=== PATIENT | female | born 2005 | race Caucasian/White ===

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

== ENCOUNTER 2024-09-30 17:24 | Observation (INO) ==
[2024-09-30] MEDS: ONDANSETRON INJ 2 MG/ML 2 ML VIAL IV STA (17:47)
--- NOTE | 2024-09-30 18:29 | Emergency Department Note ---
Impression & Plan Paresthesias, Adverse effects of medication, Trouble walking, Transaminitis ED Provider Note NAME: DUNG LÓPEZ AGE: 19 SEX: F : 2005 ARRIVES VIA: Walk-In INFORMANT: Patient ED PROVIDER(S): Donald Rausch DO CHIEF COMPLAINT: Trouble walking, numbness HPI: Patient is a 19-year-old female who presents to the ER following starting take Flagyl for the past 2 days. Following this she became sick to her stomach and did vomit. She notes paresthesias in bilateral hands on the base of the feet. She notes she feels very rigid and has trouble walking. Denies any headache. Admits to some neck pain which she said present for the past 3 weeks which is unchanged. No chest pain or shortness of breath. No dysuria, urgency or frequency. No other exacerbating or remitting factors. She notes the difficulty walking and numbness has been present for the past 2 days since this started. ADDITIONAL HISTORY OBTAINED: Per HPI Chronic Medical/Social Conditions Affecting Care: Per HPI PAST MEDICAL HISTORY:See Below PAST SURGICAL HISTORY:See Below FAMILY HISTORY:See Below SOCIAL HISTORY:See Below HOME MEDICATIONS:See Below ALLERGIES:See Below VITALS:See Below PHYSICAL EXAMINATION: GENERAL: Sitting up in bed, alert, well appearing, well nourished, no distress, non-toxic EYE EXAM: normal conjunctiva. PERRL and EOM's grossly intact. OROPHARYNX: no exudate, no erythema, lips, buccal mucosa, and tongue normal and mucous membranes are moist NECK: supple, no nuchal rigidity, no adenopathy, non-tender LUNGS: Clear to auscultation. Normal chest wall mechanics HEART: no murmurs, S1 normal and S2 normal ABDOMEN: abdomen soft, non-tender, normo-active bowel sounds, no masses, no rebound or guarding. BACK: Back is symmetrical on inspection and there is no deformity, no midline tenderness, no CVA tenderness. SKIN: no rashes and no bruising UPPER EXTREMITIES: upper extremities are grossly normal. LOWER EXTREMITIES: No pitting edema. NEURO EXAM: Normal sensorium, cranial nerves II-XII intact, normal speech, no gross weakness of arms, rigidity in the lower extremities with no clonus. Walks with a wider base gait. No patellar or Achilles reflexes present although patient was having significant difficulty relaxing MEDICAL DECISION MAKING: Patient is a 19-year-old female who presents ER for the above-stated complaint. IV was established and blood work was obtained. Labs show no significant leukocytosis or anemia. BMP along with T. bili is unremarkable. LFTs with mild transaminitis. CRP was pending upon admission. Said was 11. Lipase was normal. CT angios of the head and neck were negative per radiology. Discussed with Susan Purcell from neurology at [facility] and she evaluated the patient. She recommended admission. Discussed with Dr. Gonzalez for further evaluation management treatment. At this time do not feel this consistent with GBS. No signs of meningitis or encephalitis. Consults/Care Managements Discussions: Per MDM Triage Nursing notes reviewed. Limited review of prior medical records performed Vital Signs: reviewed and remarkable for HTN and tachy Differential diagnosis: Differential Diagnosis includes but is not limited to ischemic Stroke, hemorrhagic stroke, bells palsy, mass, neoplasm, migraine headache, seizure, subarachnoid hemorrhage, TIA, and transient global amnesia. ER treatment provided: See below Diagnostics interpreted by me include EKG and cardiac monitoring as listed below: -Cardiac Monitoring: An order was placed for continuous cardiac monitoring. The monitor shows a rate of 100 with sinus rhythm. -ECG: none -Laboratory studies:Interpreted by me as stated above in MDM and shown below. Imaging studies: Xrays: As interpreted by me:none CTs show: CT angios of the head and neck were negative per radiology Procedures:none Critical Care: None Past Med/Surg History Problem List (Updated 09/30/24 @ 20:36 by Donald Rausch DO) Transaminitis (Acute) Trouble walking (Acute) Adverse effects of medication (Acute) Malaise and fatigue Fever (Acute) Back pain (Acute) Paresthesias (Acute) Cerebrospinal fluid protein elevation (Acute) Headache (Acute) Meningitis, viral (Acute) Patient denies medical problems Medical History Self-injurious behavior Suicidal ideation Headache Family History Grandmother (Maternal) Breast cancer Denies family history of Ovarian cancer Prostate cancer Myocardial infarction Colorectal cancer Social History Smoking Status: Former smoker Tobacco Type: E-cigarettes / Vaping Hx Alcohol Use: No Hx Substance Use: No Preferred Language: [place]ese Communication Ability: Effective Visual Impairment: No Limitations Hearing Ability: Normal Signals Intelligence Analyst Required: No Beliefs That Will Affect Care: None marital status: Single Current Living Situation: Other Current Living Situation Comment: friends current occupational status: employed Feels Safe at Home: Yes caffeine: Yes Dental Care, Regularly: Yes Physical Activity Frequency: 3-4 Times per Week Seatbelt Use: always Sunscreen Use: Yes Assistive Devices: None Allergies Allergies Allergy/AdvReac Type Severity Reaction Status Date / Time naproxen Allergy Vomiting Verified 08/23/24 13:41 Home Meds Home Medications Medication Instructions Recorded Confirmed levonorgestrel 21 mcg/24 hr (up to 1 device intrauterine DIRECTED 02/06/23 06/03/24 8 years) 52 mg intrauterine device (Mirena) triamcinolone acetonide 0.1 % 1 applic topical BID 06/03/24 06/03/24 topical cream Previous Rx's Medication Instructions Recorded amoxicillin 875 mg-potassium 1 tab PO BID #10 tabs 06/03/24 clavulanate 125 mg tablet ondansetron 4 mg disintegrating 4 mg PO Q8H PRN nausea and 06/03/24 tablet vomiting #15 tabs Results & Data (ED) Vital Signs Vital Signs - 24 hr 09/30/24 17:28 Temperature 36.7 C Temperature Source Temporal Artery Scan Pulse Rate 100 H Respiratory Rate 18 Respiratory Effort / Characteristics Non-Labored Respiratory Depth Normal Blood Pressure 154/99 H Blood Pressure Mean 117 Pulse Oximetry 100 Oxygen Delivery Method Room Air Sepsis Recent Fever Within 48 Hours No Sepsis New/Unexplained Change in Mental Status No Sepsis Action Taken by Nursing No Action Required Laboratory Data 09/30/24 19:21 09/30/24 19:21 Lab Results 09/30/24 Range/Units 19:21 WBC 7.10 (4.8-10.8) K/ul RBC 4.34 (4.20-5.40) M/uL Hgb 13.0 (12.0-16.0) g/dl Hct 37.9 (37.0-47.0) % MCV 87.3 (80.0-100.0) fL MCH 30.0 (25.0-34.0) pg MCHC 34.3 (32.0-36.0) g/dL RDW Std Deviation 37.4 (36.4-46.3) fL RDW Coeff of Ciara 11.7 (11.5-14.5) % Plt Count 206 (130-400) K/uL MPV 9.1 L (9.4-12.4) fL Immature Gran % (Auto) 0.3 % Neut % (Auto) 50.1 % Lymph % (Auto) 42.1 % Fisher % (Auto) 6.9 % Eos % (Auto) 0.0 % Baso % (Auto) 0.6 % Neut # (Auto) 3.56 (1.40-6.50) K/uL Lymph # (Auto) 2.99 (1.20-3.40) K/uL Fisher # (Auto) 0.49 (0.11-0.59) K/uL Eos # (Auto) 0.00 (0.00-0.50) K/uL Baso # (Auto) 0.04 (0.00-0.20) K/uL Immature Gran # (Auto) 0.02 (0.01-0.20) K/uL ESR 11 (0-20) mm/hr Sodium 135 L (136-145) mmol/L Potassium 3.9 (3.5-5.1) mmol/L Chloride 104 (98-107) mmol/L Carbon Dioxide 23 (21-32) mmol/L Anion Gap 8 (3-11) BUN 17 (6-23) mg/dl Creatinine 0.53 L (0.6-1.2) mg/dl Est Cr Clr Drug Dosing 158.5 ml/min eGFR 135.70 BUN/Creatinine Ratio 32.1 H (10-20) Glucose 87 (70-99(Fasting)) mg/dl Calcium 9.0 (8.6-10.3) mg/dl Magnesium 1.8 (1.7-2.4) mg/dl Total Bilirubin 0.4 (0.2-1.0) mg/dl AST 101 H (13-39) U/L ALT 213 H (7-52) U/L Alkaline Phosphatase 69 (34-104) U/L Total Protein 7.5 (6.0-8.3) gm/dl Albumin 4.0 (3.4-5.0) gm/dl Globulin 3.5 (2.5-4.0) gm/dl Albumin/Globulin Ratio 1.1 (0.9-2) Lipase 95 H (11-82) U/L Administered Medications Discontinued Medications Diphenhydramine HCl (Diphenhydramine 50 Mg/Ml Vial) 25 mg IV NOW STA Stop: 09/30/24 18:19 Last Admin: 09/30/24 18:49 Dose: 25 mg Documented By: HORTENCIA Ioversol (Optiray 320 125ml) 119 ml IV ONCE ONE Stop: 09/30/24 19:03 Last Admin: 09/30/24 19:02 Dose: 119 ml Documented By: MARICHUY Ondansetron HCl (Ondansetron Inj 2 Mg/Ml 2 Ml Vial) 4 mg IV NOW STA Stop: 09/30/24 17:41 Last Admin: 09/30/24 17:47 Dose: 4 mg Documented By: RAFAEL Imaging Data Radiologist's Impression: Head CTA 09/30/24 18:[address] without contrast CT angiogram of the neck CT angiogram of the brain with contrast Provided History: Headache Comparison: None Technique: HEAD CT: Using multidetector thin collimation helical acquisition technique, axial, coronal and sagittal CT images from the skull base to the vertex were obtained without intravenous contrast. HEAD and NECK CTA: During rapid bolus intravenous injection of nonionic contrast material, axial images were obtained using thin collimation multidetector helical technique from the base of the neck through the of vertex of the head. This CT angiogram data was reconstructed at thin intervals with mild overlap. 3D reconstructions were obtained. The axial source images, multiplanar reformations, 3D reconstructions in both maximum intensity projection display and volume rendered models were reviewed. Dose reduction techniques were achieved by using automatic exposure control and/or adjustment of mA and/or kV according to patient size and/or use of iterative reconstruction technique. Findings: Head CT: There is no intracranial hemorrhage, mass effect, or midline shift. Lyon/white matter differentiation in both cerebral hemispheres is preserved. Ventricles are proportionate to the cerebral sulci. Mild fluid in the left maxillary sinus. Head CTA demonstrates no aneurysm or stenosis of the major intracranial arteries. Neck CTA demonstrates no stenosis of the major cervical arteries. The origins of the great vessels from the aortic arch are patent. No mass is noted within the visualized portions of the cervical soft tissues or lung apices. Impression: 1. Head CTA demonstrates no aneurysm or stenosis of the major intracranial arteries, 2. Neck CTA demonstrates no stenosis of the major cervical arteries. 3. No intracranial hemorrhage on the noncontrast head CT. Electronically signed by Anthony Fuentes 09-30-2024 7:33 PM Neck CTA 09/30/24 18:[address] without contrast CT angiogram of the neck CT angiogram of the brain with contrast Provided History: Headache Comparison: None Technique: HEAD CT: Using multidetector thin collimation helical acquisition technique, axial, coronal and sagittal CT images from the skull base to the vertex were obtained without intravenous contrast. HEAD and NECK CTA: During rapid bolus intravenous injection of nonionic contrast material, axial images were obtained using thin collimation multidetector helical technique from the base of the neck through the of vertex of the head. This CT angiogram data was reconstructed at thin intervals with mild overlap. 3D reconstructions were obtained. The axial source images, multiplanar reformations, 3D reconstructions in both maximum intensity projection display and volume rendered models were reviewed. Dose reduction techniques were achieved by using automatic exposure control and/or adjustment of mA and/or kV according to patient size and/or use of iterative reconstruction technique. Findings: Head CT: There is no intracranial hemorrhage, mass effect, or midline shift. Lyon/white matter differentiation in both cerebral hemispheres is preserved. Ventricles are proportionate to the cerebral sulci. Mild fluid in the left maxillary sinus. Head CTA demonstrates no aneurysm or stenosis of the major intracranial arteries. Neck CTA demonstrates no stenosis of the major cervical arteries. The origins of the great vessels from the aortic arch are patent. No mass is noted within the visualized portions of the cervical soft tissues or lung apices. Impression: 1. Head CTA demonstrates no aneurysm or stenosis of the major intracranial arteries, 2. Neck CTA demonstrates no stenosis of the major cervical arteries. 3. No intracranial hemorrhage on the noncontrast head CT. Electronically signed by Anthony Fuentes 09-30-2024 7:33 PM Discharge Plan Visit Data Chief Complaint: Allergic Reaction Stated Complaint: ALLERGIC REACTION, TO MED, [place]INGL[place], NAUSEA ED Provider: Donald Rausch Discharge Problem: Paresthesias, Adverse effects of medication, Trouble walking, Transaminitis Condition: Fair Forms Stand Alone Forms: Modality Prescriptions Prescriptions: No Action Mirena 21 mcg/24 hours (8 yrs) 52 mg intrauterine device 1 device intrauterine DIRECTED triamcinolone acetonide 0.1 % cream 1 applic topical BID amoxicillin-pot clavulanate 875-125 mg tablet 1 tab PO BID Qty: 10 0RF ondansetron 4 mg tablet,disintegrating 4 mg PO Q8H PRN (Reason: nausea and vomiting) Qty: 15 0RF Referrals Referrals: Bora Mendoza MD [Primary Care Provider] - Discharge Problem: Adverse effects of medication Qualifiers: Encounter type: initial encounter Qualified Code(s): T50.905A - Adverse effect of unspecified drugs, medicaments and biological substances, initial encounter
[2024-09-30] MEDS: diphenhydrAMINE 50 MG/ML VIAL IV STA (18:49)
[2024-09-30] MEDS: OPTIRAY 320 125ml IV ONE (19:02)
[2024-09-30 19:32] LABS: Hematocrit (blood only) 37.9 % (37.0-47.0); Hemoglobin 13.0 g/dl (12.0-16.0); Immature Granulocytes # (auto) 0.02 K/uL (0.01-0.20); Immature Granulocytes % (auto) 0.3 %; Mean Corpuscular Hemoglobin 30.0 pg (25.0-34.0); Mean Corpuscular Volume 87.3 fL (80.0-100.0); Platelet Count 206 K/uL (130-400); RDW Standard Deviation 37.4 fL (36.4-46.3); Red Blood Count 4.34 M/uL (4.20-5.40); White Blood Count 7.10 K/ul (4.8-10.8)
--- NOTE | 2024-09-30 19:33 | CT Scan Report ---
Head CT without contrast CT angiogram of the neck CT angiogram of the brain with contrast Provided History: Headache Comparison: None Technique: HEAD CT: Using multidetector thin collimation helical acquisition technique, axial, coronal and sagittal CT images from the skull base to the vertex were obtained without intravenous contrast. HEAD and NECK CTA: During rapid bolus intravenous injection of nonionic contrast material, axial images were obtained using thin collimation multidetector helical technique from the base of the neck through the of vertex of the head. This CT angiogram data was reconstructed at thin intervals with mild overlap. 3D reconstructions were obtained. The axial source images, multiplanar reformations, 3D reconstructions in both maximum intensity projection display and volume rendered models were reviewed. Dose reduction techniques were achieved by using automatic exposure control and/or adjustment of mA and/or kV according to patient size and/or use of iterative reconstruction technique. Findings: Head CT: There is no intracranial hemorrhage, mass effect, or midline shift. Lyon/white matter differentiation in both cerebral hemispheres is preserved. Ventricles are proportionate to the cerebral sulci. Mild fluid in the left maxillary sinus. Head CTA demonstrates no aneurysm or stenosis of the major intracranial arteries. Neck CTA demonstrates no stenosis of the major cervical arteries. The origins of the great vessels from the aortic arch are patent. No mass is noted within the visualized portions of the cervical soft tissues or lung apices. Impression: 1. Head CTA demonstrates no aneurysm or stenosis of the major intracranial arteries, 2. Neck CTA demonstrates no stenosis of the major cervical arteries. 3. No intracranial hemorrhage on the noncontrast head CT. Electronically signed by Anthony Fuentes 09-30-2024 7:33 PM
--- NOTE | 2024-09-30 19:39 | Neurology Consultation ---
Date of Consultation September 30, 2024 Assessment & Plan (1) Adverse effects of medication: I suspect the patient's symptoms are due to adverse reaction to metronidazole. It is known to cause nausea and 10 to 12%, headache and 18%, dizziness and 4%, epigastric discomfort, asthenia, drowsiness, malaise, numbness. - Metronidazole will need to be listed as an allergy - Discontinue metronidazole - Would hold Benadryl as it did not provide benefit and somewhat worsen the patient's symptoms - Continue Zofran - Recommend IV fluids - Oral intake as tolerated - Recommend 24 hours observation - PT OT consult in the morning - No further brain or spine imaging needed unless patient symptoms do not resolve - I will check on the patient tomorrow Telehealth Consultation Telehealth Information Telehealth Information: I performed this visit using a real-time telehealth connection between my location and the patients location ([facility]). After connecting through interactive tele-video, patient was identified by name and date of and/or wristband check.Patient (or authorized healthcare outreach representative) was informed that this was a telemedicine visit and it was being conducted confidentially over secure lines. My office door was closed and no one else was present in the room with me.Patient (or authorized healthcare outreach representative) provided consent to proceed with the visit, expressed an understanding of privacy and security of the telemedicine visit, and gave permission to have a hospital outreach representative in the room in order to assist with the visit and to conduct portions of the visit, as needed. I informed the patient (or authorized healthcare outreach representative) that I reviewed their record and presented the opportunity for them to ask any questions regarding the visit today. The patient agreed to participate. History of Present Illness Reason for Consultation: Adverse effect of metronidazole Requesting Physician: Dr. Rausch History of Present Illness Flower Hernandez is a 19-year-old previously healthy female who presents to [facility] emergency department on 09/30/2024 with acute onset paresthesias, nausea, vomiting, gait unsteadiness following 2 doses of metronidazole she was recently prescribed for BV. A friend is present for the encounter and does not provide history. Flower reports that she was recently prescribed metronidazole. After 1 dose that she has paresthesias in the bilateral hands and feet. After the second dose she developed migraines, unsteadiness, abnormal proprioception, nausea, and vomiting. She called her primary care physician who recommended she take Benadryl and report to the emergency department. She reports the Benadryl did not help. She had 1 dose of Zofran in the emergency department which provided some relief. She tells me she has not been drinking much water or eating due to the nausea and vomiting. She had a prior allergic reaction to naproxen of vomiting, otherwise no known allergies. Allergies Allergy/AdvReac Type Severity Reaction Status Date / Time naproxen Allergy Vomiting Verified 08/23/24 13:41 Home Medications Medication Instructions Recorded Confirmed Type levonorgestrel 21 mcg/24 hr (up to 1 device intrauterine DIRECTED 02/06/23 06/03/24 History 8 years) 52 mg intrauterine device (Mirena) amoxicillin 875 mg-potassium 1 tab PO BID #10 tabs 06/03/24 Rx clavulanate 125 mg tablet ondansetron 4 mg disintegrating 4 mg PO Q8H PRN nausea and 06/03/24 Rx tablet vomiting #15 tabs triamcinolone acetonide 0.1 % 1 applic topical BID 06/03/24 06/03/24 History topical cream Patient History Medical History Self-injurious behavior Suicidal ideation Headache Family History Grandmother (Maternal) Breast cancer Denies family history of Ovarian cancer Prostate cancer Myocardial infarction Colorectal cancer Social History Smoking Status: Former smoker Tobacco Type: E-cigarettes / Vaping Hx Alcohol Use: No Hx Substance Use: No Preferred Language: Urdu Communication Ability: Effective Visual Impairment: No Limitations 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 Physical Exam Physical Exam: General Appearance: Alert HEENT: anicteric sclera, no scleral injection Lungs: respirations appear comfortable, no obvious increased work of breathing Extremities: No cyanosis or fingernail clubbing Skin: No rashes in exposed skin areas Objective Limited due to Televideo encounter Physical Exam: General Appearance: Alert Neurological Examination: Mental status: Alert and oriented. No dysarthria. Cranial Nerves: Extraocular movements intact with no nystagmus. Midline gaze. Face symmetric. Sensory: Normal sensory exam to light touch. Motor:Absent pronator drift, antigravity in all extremities. Cerebellar: [id number] intact. [id number] intact. Results & Data Vital Signs (Past 12 Hours) Vital Signs Temp Pulse Resp BP Pulse Ox O2 Del Method 09/30/24 17:28 36.7 C 100 H 18 154/99 H 100 Room Air Laboratory Results 09/30/24 19:21 WBC 7.10 RBC 4.34 Hgb 13.0 Hct 37.9 MCV 87.3 MCH 30.0 MCHC 34.3 RDW Std Deviation 37.4 RDW Coeff of Ciara 11.7 Plt Count 206 MPV 9.1 L Immature Gran % (Auto) 0.3 Neut % (Auto) 50.1 Lymph % (Auto) 42.1 Miller % (Auto) 6.9 Eos % (Auto) 0.0 Baso % (Auto) 0.6 Neut # (Auto) 3.56 Lymph # (Auto) 2.99 Miller # (Auto) 0.49 Eos # (Auto) 0.00 Baso # (Auto) 0.04 Immature Gran # (Auto) 0.02 Diagnostic Findings Head Neck CTA 09/30/24 18:[address] without contrast CT angiogram of the neck CT angiogram of the brain with contrast Provided History: Headache Findings: Head CT: There is no intracranial hemorrhage, mass effect, or midline shift. Lyon/white matter differentiation in both cerebral hemispheres is preserved. Ventricles are proportionate to the cerebral sulci. Mild fluid in the left maxillary sinus. Head CTA demonstrates no aneurysm or stenosis of the major intracranial arteries. Neck CTA demonstrates no stenosis of the major cervical arteries. The origins of the great vessels from the aortic arch are patent. No mass is noted within the visualized portions of the cervical soft tissues or lung apices. Impression: 1. Head CTA demonstrates no aneurysm or stenosis of the major intracranial arteries, 2. Neck CTA demonstrates no stenosis of the major cervical arteries. 3. No intracranial hemorrhage on the noncontrast head CT. Electronically signed by Anthony Fuentes 09-30-2024 7:33 PM
[2024-09-30 19:50] LABS: Alanine Aminotransferase 213.0 U/L (7-52); Albumin Globulin Ratio 1.1 (0.9-2); Alkaline Phosphatase 69.0 U/L (34-104); Anion Gap 8.0 (3-11); Bilirubin,Total 0.4 mg/dl (0.2-1.0); Blood Urea Nitrogen 17.0 mg/dl (6-23); Calcium 9.0 mg/dl (8.6-10.3); Carbon Dioxide 23.0 mmol/L (21-32); Chloride 104.0 mmol/L (98-107); Creatinine Clr Calc Pharmacy 158.5 ml/min; Globulin 3.5 gm/dl (2.5-4.0); Glucose 87.0 mg/dl (70-99(Fasting)); Lipase 95.0 U/L (11-82); Potassium 3.9 mmol/L (3.5-5.1); Sodium 135.0 mmol/L (136-145); Total Protein 7.5 gm/dl (6.0-8.3)
[2024-09-30 20:07] LABS: Magnesium 1.8 mg/dl (1.7-2.4)
--- NOTE | 2024-09-30 20:59 | History & Physical Report ---
Date of Service September 30, 2024 Assessment & Plan (1) Paresthesias: Plan: Assessment and plan below following discussion of case with ED provider and reviewing patient history/pertinent normal/abnormal diagnostic test results. Paresthesias with abnormal LFTs Possible metronidazole ADR Bacterial vaginosis currently on topical clindamycin Rx mood disorder, stable anxiety/mood disorder, stable past tobacco abuse OBS Admit to med/tele Neurochecks Add metronidazole to allergy/ADR list Neurology consult Re: Paresthesias (Patient already evaluated by Dr. Purcell of [facility].) Follow LFTs, liver ultrasound if any progression DVT prophylaxis per Lovenox subcu Full code Text document was generated using Node[employer] voice recognition software. It may contain grammatical or spelling errors. Kindly contact undersigned for clarification of any documentation item in question. History of Present Illness Chief Complaint: Numbness Primary Care Provider: Rosario Soriano PA-C, History obtained from patient and records. Medical history significant for mood disorder, migraine, urolithiasis, anxiety/mood disorder, past tobacco abuse. Patient seen at PCPs office 3 days ago for dysuria symptoms with vaginal discharge and pelvic pain. Outpatient vaginosis panel positive for bacterial vaginosis and Charity species. Patient prescribed 1 dose of Diflucan and Flagyl course for infection. Patient experienced burning sensation of hands and feet after first 2 doses of metronidazole Mild crampy abdominal pain with nausea vomiting. Achy headache symptoms and trouble walking. Denies chest pain, SOB. No recollection of tick bites. Patient relayed concerns to outpatient provider who recommended stopping Flagyl for bacterial vaginosis. Topical clindamycin prescribed in place of Flagyl. Patient consulted ER for worsening discomfort in the hands and feet. 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 Allergies Allergy/AdvReac Type Severity Reaction Status Date / Time naproxen Allergy Mild Vomiting Verified 09/30/24 21:31 metronidazole AdvReac Nausea Verified 09/30/24 21:31 Home Medications Medication Instructions Recorded Confirmed Type levonorgestrel 21 mcg/24 hr (up to 1 device intrauterine DIRECTED 02/06/23 06/03/24 History 8 years) 52 mg intrauterine device (Mirena) diclofenac sodium 1 % topical gel 2 g topical TID 09/30/24 09/30/24 History (Voltaren Arthritis Pain) escitalopram oxalate 10 mg tablet 10 mg PO DAILY 09/30/24 09/30/24 History olopatadine 0.1 % eye drops 1 drp ophthalmic (eye) BID 09/30/24 09/30/24 History (Pataday Twice Daily Relief) Past Med/Surg History Problem List (Updated 09/30/24 @ 20:36 by Donald Rausch DO) Transaminitis (Acute) Trouble walking (Acute) Adverse effects of medication (Acute) Malaise and fatigue Fever (Acute) Back pain (Acute) Paresthesias (Acute) Cerebrospinal fluid protein elevation (Acute) Headache (Acute) Meningitis, viral (Acute) Patient denies medical problems Medical History Self-injurious behavior Suicidal ideation Headache Family History Grandmother (Maternal) Breast cancer Denies family history of Ovarian cancer Prostate cancer Myocardial infarction Colorectal cancer Social History Smoking Status: Former smoker Tobacco Type: E-cigarettes / Vaping Smoking End Date: 07/2024; Hx Alcohol Use: Yes Alcohol type: hard liquor Alcohol type Comment: Tried vodka x1 Alcohol Intake Frequency: Monthly or Less Hx Substance Use: No Preferred Language: Bolivian Communication Ability: Effective Visual Impairment: No Limitations Hearing Ability: Normal Stock Handler Floorperson Required: No Beliefs That Will Affect Care: None marital status: Single Current Living Situation: Other Current Living Situation Comment: Apartment with roommate current occupational status: employed Other Information That Helps Us Care for You: No Feels Safe at Home: Yes Safety Concerns: Feels Safe At This Time caffeine: Yes Dental Care, Regularly: Yes Physical Activity Frequency: 3-4 Times per Week Seatbelt Use: always Sunscreen Use: Yes Assistive Devices: Glasses Review of Systems Review of Systems: As per HPI, all other systems reviewed and negative Physical Exam Physical Exam: GENERAL: Comfortable, slightly anxious, no respiratory distress SKIN: Normal color, warm HEENT: [place] palpebral conjunctivae, no ptosis, dry buccal mucosa NECK : Supple, no tenderness CHEST : CTA, no tenderness HEART : RRR, no obvious murmurs ABDOMEN: no distention, nontender EXTREMITIES : No LE swelling/tenderness, palpable pulses, no other conspicuous deformities noted NEUROLOGIC : Coherent, no facial asymmetry, gait and stance not assessed Results & Data Results & Data Vital Signs (Past 12 Hours) Vital Signs Temp Pulse Resp BP Pulse Ox O2 Del Method 09/30/24 17:28 36.7 C 100 H 18 154/99 H 100 Room Air Laboratory Results Laboratory Results WBC 7.10 K/ul (4.8-10.8) 09/30/24 19: RBC 4.34 M/uL (4.20-5.40) 09/30/24 19: Hgb 13.0 g/dl (12.0-16.0) 09/30/24 19: Hct 37.9 % (37.0-47.0) 09/30/24 19: MCV 87.3 fL (80.0-100.0) 09/30/24 19: MCH 30.0 pg (25.0-34.0) 09/30/24 19: MCHC 34.3 g/dL (32.0-36.0) 09/30/24 19: RDW Std Deviation 37.4 fL (36.4-46.3) 09/30/24: RDW Coeff of Ciara 11.7 % (11.5-14.5) 09/30/24 19: Plt Count 206 K/uL (130-400) 09/30/24 19: MPV 9.1 fL (9.4-12.4) L 09/30/24 19: Immature Gran % (Auto) 0.3 % 09/30/24 19: Neut % (Auto) 50.1 % 09/30/24 19: Lymph % (Auto) 42.1 % 09/30/24: [place] % (Auto) 6.9 % 09/30/24 19: Eos % (Auto) 0.0 % 09/30/24 19: Baso % (Auto) 0.6 % 09/30/24: Neut # (Auto) 3.56 K/uL (1.40-6.50) 09/30/24 19: Lymph # (Auto) 2.99 K/uL (1.20-3.40) 09/30/24 19:21 [place] # (Auto) 0.49 K/uL (0.11-0.59) 09/30/24 19:21 Eos # (Auto) 0.00 K/uL (0.00-0.50) 09/30/24 19:21 Baso # (Auto) 0.04 K/uL (0.00-0.20) 09/30/24 19:21 Immature Gran # (Auto) 0.02 K/uL (0.01-0.20) 09/30/24 19:21 ESR 11 mm/hr (0-20) 09/30/24 19:21 Sodium 135 mmol/L (136-145) L 09/30/24 19: Potassium 3.9 mmol/L (3.5-5.1) 09/30/24 19:21 Chloride 104 mmol/L (98-107) 09/30/24 19: Carbon Dioxide 23 mmol/L (21-32) 09/30/24 19:21 Anion Gap 8 (3-11) 09/30/24 19:21 BUN 17 mg/dl (6-23) 09/30/24 19:21 Creatinine 0.53 mg/dl (0.6-1.2) L 09/30/24 19:21 Est Cr Clr Drug Dosing 158.5 ml/min 09/30/24 19:21 eGFR 135.70 09/30/24 19:21 BUN/Creatinine Ratio 32.1 (10-20) H 09/30/24 19: Glucose 87 mg/dl (70-99(Fasting)) 09/30/24 19: Calcium 9.0 mg/dl (8.6-10.3) 09/30/24 19:21 Magnesium 1.8 mg/dl (1.7-2.4) 09/30/24 19:21 Total Bilirubin 0.4 mg/dl (0.2-1.0) 09/30/24 19:21 AST 101 U/L (13-39) H 09/30/24 19:21 ALT 213 U/L (7-52) H 09/30/24 19:21 Alkaline Phosphatase 69 U/L (34-104) 09/30/24 19:21 Total Protein 7.5 gm/dl (6.0-8.3) 09/30/24 19:21 Albumin 4.0 gm/dl (3.4-5.0) 09/30/24 19:21 Globulin 3.5 gm/dl (2.5-4.0) 09/30/24 19:21 Albumin/Globulin Ratio 1.1 (0.9-2) 09/30/24 19:21 Lipase 95 U/L (11-82) H 09/30/24 19:21 Procalcitonin Cancelled 09/30/24 19:21 Impressions Head CTA 09/30/24 18:[address] without contrast CT angiogram of the neck CT angiogram of the brain with contrast Provided History: Headache Comparison: None Technique: HEAD CT: Using multidetector thin collimation helical acquisition technique, axial, coronal and sagittal CT images from the skull base to the vertex were obtained without intravenous contrast. HEAD and NECK CTA: During rapid bolus intravenous injection of nonionic contrast material, axial images were obtained using thin collimation multidetector helical technique from the base of the neck through the of vertex of the head. This CT angiogram data was reconstructed at thin intervals with mild overlap. 3D reconstructions were obtained. The axial source images, multiplanar reformations, 3D reconstructions in both maximum intensity projection display and volume rendered models were reviewed. Dose reduction techniques were achieved by using automatic exposure control and/or adjustment of mA and/or kV according to patient size and/or use of iterative reconstruction technique. Findings: Head CT: There is no intracranial hemorrhage, mass effect, or midline shift. [place]/white matter differentiation in both cerebral hemispheres is preserved. Ventricles are proportionate to the cerebral sulci. Mild fluid in the left maxillary sinus. Head CTA demonstrates no aneurysm or stenosis of the major intracranial arteries. Neck CTA demonstrates no stenosis of the major cervical arteries. The origins of the great vessels from the aortic arch are patent. No mass is noted within the visualized portions of the cervical soft tissues or lung apices. Impression: 1. Head CTA demonstrates no aneurysm or stenosis of the major intracranial arteries, 2. Neck CTA demonstrates no stenosis of the major cervical arteries. 3. No intracranial hemorrhage on the noncontrast head CT. Electronically signed by Anthony Fuentes 09-30-2024 7:33 PM Neck CTA 09/30/24 18:[address] without contrast CT angiogram of the neck CT angiogram of the brain with contrast Provided History: Headache Comparison: None Technique: HEAD CT: Using multidetector thin collimation helical acquisition technique, axial, coronal and sagittal CT images from the skull base to the vertex were obtained without intravenous contrast. HEAD and NECK CTA: During rapid bolus intravenous injection of nonionic contrast material, axial images were obtained using thin collimation multidetector helical technique from the base of the neck through the of vertex of the head. This CT angiogram data was reconstructed at thin intervals with mild overlap. 3D reconstructions were obtained. The axial source images, multiplanar reformations, 3D reconstructions in both maximum intensity projection display and volume rendered models were reviewed. Dose reduction techniques were achieved by using automatic exposure control and/or adjustment of mA and/or kV according to patient size and/or use of iterative reconstruction technique. Findings: Head CT: There is no intracranial hemorrhage, mass effect, or midline shift. [place]/white matter differentiation in both cerebral hemispheres is preserved. Ventricles are proportionate to the cerebral sulci. Mild fluid in the left maxillary sinus. Head CTA demonstrates no aneurysm or stenosis of the major intracranial arteries. Neck CTA demonstrates no stenosis of the major cervical arteries. The origins of the great vessels from the aortic arch are patent. No mass is noted within the visualized portions of the cervical soft tissues or lung apices. Impression: 1. Head CTA demonstrates no aneurysm or stenosis of the major intracranial arteries, 2. Neck CTA demonstrates no stenosis of the major cervical arteries. 3. No intracranial hemorrhage on the noncontrast head CT. Electronically signed by Anthony Fuentes 09-30-2024 7:33 PM
[2024-09-30] MEDS ORDERED: PROMETHAZINE 6.25 MG/50.25 ML BAG IV PRN (21:30)
[2024-09-30] MEDS ORDERED: LORazepam 0.5 MG TAB PO PRN (21:30)
[2024-09-30] MEDS ORDERED: ACETAMINOPHEN 325 MG TAB PO PRN (21:30)
[2024-09-30] MEDS: CLINDAMYCIN PHOS 2% VAG 7 APPLN/40 GM TUBE PV SCH (21:34)
[2024-09-30] MEDS: SODIUM CHLORIDE 0.9% 1,000 ML IV ONE (21:35)
[2024-09-30] MEDS ORDERED: PHARMACIST DISCHARGE MED REC CONSULT PRN (21:57)
[2024-09-30 22:07] LABS: Thyroid Stimulating Hormone 1.211 uIu/ml (0.300-4.500)
[2024-10-01 07:08] LABS: Hematocrit (blood only) 36.6 % (37.0-47.0); Hemoglobin 12.5 g/dl (12.0-16.0); Mean Corpuscular Hemoglobin 29.8 pg (25.0-34.0); Mean Corpuscular Volume 87.4 fL (80.0-100.0); Platelet Count 191 K/uL (130-400); RDW Standard Deviation 38.0 fL (36.4-46.3); Red Blood Count 4.19 M/uL (4.20-5.40); White Blood Count 4.99 K/ul (4.8-10.8)
[2024-10-01 07:26] LABS: Alanine Aminotransferase 215.0 U/L (7-52); Albumin Globulin Ratio 1.4 (0.9-2); Alkaline Phosphatase 57.0 U/L (34-104); Anion Gap 5.0 (3-11); Bilirubin,Total 0.4 mg/dl (0.2-1.0); Blood Urea Nitrogen 12.0 mg/dl (6-23); Calcium 8.7 mg/dl (8.6-10.3); Carbon Dioxide 26.0 mmol/L (21-32); Chloride 107.0 mmol/L (98-107); Creatinine Clr Calc Pharmacy 214.7 ml/min; Globulin 2.7 gm/dl (2.5-4.0); Glucose 81.0 mg/dl (70-99(Fasting)); Potassium 3.5 mmol/L (3.5-5.1); Sodium 138.0 mmol/L (136-145); Total Protein 6.5 gm/dl (6.0-8.3)
[2024-10-01 07:50] LABS: ALC (manual) 2.79 K/uL (1.2-3.4); ANC (manual) 1.90 K/uL (1.4-6.5); RBC Morphology Unremarkable; Reactive Lymphocytes # (manual) 1.35 K/uL; Reactive Lymphocytes % (manual) 27 %
[2024-10-01 08:13] VITALS: BP 120/77; PULSE 74; RESP 17; TEMP 97.3
[2024-10-01] MEDS: ENOXAPARIN INJ 40 MG/0.4 ML SYR SQ SCH (08:44)
[2024-10-01] MEDS: DICLOFENAC SOD 1% GEL 100 GM TUBE EXT SCH (08:44)
[2024-10-01] MEDS: ESCITALOPRAM OXALATE 10 MG TAB PO SCH (08:44)
[2024-10-01] MEDS: ACETAMINOPHEN 500 MG TAB PO PRN (11:15)
--- NOTE | 2024-10-01 11:21 | Neurology Progress Note ---
Date of Service October 01, 2024 Assessment & Plan (1) Adverse effects of medication: I suspect the patient's symptoms are due to adverse reaction to metronidazole. It is known to cause nausea and 10 to 12%, headache and 18%, dizziness and 4%, epigastric discomfort, asthenia, drowsiness, malaise, numbness. However, she is still experiencing symptoms including right leg dragging and left upper extremity paresthesias. As such, I have offered MRI brain and C-spine with and without contrast. Patient prefers to defer at this time as she has piercings she cannot remove per her report. She would like to continue her recovery at home and follow-up with her primary care physician as an outpatient. I did adv ise that if her symptoms do not within 48-72 hours, she return to the hospital for removal of the piercings and further imaging to rule out demyelinating disease in her age group. - PT OT recommended outpatient therapies - I recommended MRI brain and C-spine with and without contrast to rule out demyelinating disease, however the patient prefers to defer at this time and continue recovery at home - Patient follow-up with her primary care physician - Patient will return to the emergency department within 48-72 hours if her symptoms do not improve for removal of the piercings and advanced imaging I discussed my recommendations with Dr. Rivas. Subjective Telehealth Information I performed this visit using a real-time telehealth connection between my location and the patients location ([facility]). After connecting through interactive tele-video, patient was identified by name and date of and/or wristband check.Patient (or authorized healthcare player services representative) was informed that this was a telemedicine visit and it was being conducted confidentially over secure lines. My office door was closed and no one else was present in the room with me.Patient (or authorized healthcare player services representative) provided consent to proceed with the visit, expressed an understanding of privacy and security of the telemedicine visit, and gave permission to have a hospital player services representative in the room in order to assist with the visit and to conduct portions of the visit, as needed. I informed the pa keri (or authorized healthcare player services representative) that I reviewed their record and presented the opportunity for them to ask any questions regarding the visit today. The patient agreed to participate. I saw and examined the patient at bedside. She is feeling improved today but not back to baseline. Tells me that her right leg is still dragging which was confirmed when she walked with physical therapy. She tells me she has some persistent paresthesias in her left upper extremity. We discussed additional imaging to include MRI brain with and without contrast and MR C-spine. She prefers to hold at this time as she has piercings that she is unable to remove per her report. She prefers to continue her recovery at home, follow-up with her primary care physician, and return to the hospital or her PCP to pursue further imaging if her symptoms do not improve within 48-72 hours. Physical therapy is recommending outpatient therapies per her report. Review of Systems ROS reviewed and negative except as above. Physical Exam Physical Exam: General Appearance: Alert HEENT: anicteric sclera, no scleral injection Lungs: respirations appear comfortable, no obvious increased work of breathing Extremities: No cyanosis or fingernail clubbing Skin: No rashes in exposed skin areas Objective Limited due to Televideo encounter Physical Exam: General Appearance: Alert Neurological Examination: Mental status: Alert and oriented. No dysarthria. Cranial Nerves: Extraocular movements intact with no nystagmus. Midline gaze. Face symmetric. Sensory: Normal sensory exam to light touch. Motor:Absent pronator drift, antigravity in all extremities. Cerebellar: [id number]-jr-[id number] intact. Qtze-ax-ljax intact. Results & Data Vital Signs (Past 12 Hours) Vital Signs Temp Pulse Pulse Resp BP Pulse Ox O2 Del Method 10/01/24 08:13 36.3 C L 74 17 120/77 96 Room Air 10/01/24 06:04 75 10/01/24 04:08 88 09/30/24 23:32 36.7 C 86 15 120/79 98 Room Air Laboratory Results 10/01/24 09/30/24 06:26 19:21 WBC 4.99 7.10 RBC 4.19 L 4.34 Hgb 12.5 13.0 Hct 36.6 L 37.9 MCV 87.4 87.3 MCH 29.8 30.0 MCHC 34.2 34.3 RDW Std Deviation 38.0 37.4 RDW Coeff of Ciara 11.9 11.7 Plt Count 191 206 MPV 9.2 L 9.1 L Immature Gran % (Auto) 0.3 Neut % (Auto) 50.1 Lymph % (Auto) 42.1 [place] % (Auto) 6.9 Eos % (Auto) 0.0 Baso % (Auto) 0.6 Neut # (Auto) 3.56 Lymph # (Auto) 2.99 [place] # (Auto) 0.49 Eos # (Auto) 0.00 Baso # (Auto) 0.04 Immature Gran # (Auto) 0.02 Neutrophils % (Manual) 38 Lymphocytes % (Manual) 29 Reactive Lymphs % (Man) 27 Monocytes % (Manual) 4 Basophils % (Manual) 1 Metamyelocytes % (Man) 1 Neutrophils # (Manual) 1.90 Total Absolute Neuts 1.90 Lymphocytes # (Manual) 1.45 Reactive Lymphs # 1.35 Total Abs Lymphocytes 2.79 Monocytes # (Manual) 0.20 Basophils # (Manual) 0.05 Metamyelocytes # (Man) 0.05 H RBC Morphology Unremarkable ESR 11 Sodium 138 135 L Potassium 3.5 3.9 Chloride 107 104 Carbon Dioxide 26 23 Anion Gap 5 8 BUN 12 17 Creatinine 0.38 L 0.53 L Est Cr Clr Drug Dosing 214.7 158.5 eGFR 147.02 135.70 BUN/Creatinine Ratio 31.6 H 32.1 H Glucose 81 87 Calcium 8.7 9.0 Magnesium 1.8 Total Bilirubin 0.4 0.4 AST 115 H 101 H ALT 215 H 213 H Alkaline Phosphatase 57 69 C-Reactive Protein 0.54 H Total Protein 6.5 7.5 Albumin 3.8 4.0 Globulin 2.7 3.5 Albumin/Globulin Ratio 1.4 1.1 Lipase 95 H Procalcitonin Cancelled TSH 1.211 Ref Lab Test Result See Scanned Report Diagnostic Findings Head CT, Head and Neck CTA 09/30/24 18:[address] without contrast CT angiogram of the neck CT angiogram of the brain with contrast Impression: 1. Head CTA demonstrates no aneurysm or stenosis of the major intracranial arteries, 2. Neck CTA demonstrates no stenosis of the major cervical arteries. 3. No intracranial hemorrhage on the noncontrast head CT. Electronically signed by Anthony Fuentes 09-30-2024 7:33 PM Medications Administered Home Medications Medication Instructions Recorded Confirmed Last Taken levonorgestrel 21 mcg/24 hr (up to 1 device intrauterine DIRECTED 02/06/23 06/03/24 Unknown 8 years) 52 mg intrauterine device (Mirena) diclofenac sodium 1 % topical gel 2 g topical TID 09/30/24 09/30/24 09/30/24 (Voltaren Arthritis Pain) escitalopram oxalate 10 mg tablet 10 mg PO DAILY 09/30/24 09/30/24 09/30/24 olopatadine 0.1 % eye drops 1 drp ophthalmic (eye) BID 09/30/24 09/30/24 09/30/24 (Pataday Twice Daily Relief) Active Medications Generic Name Dose Route Start Last Admin Trade Name Cherelle PRN Reason Stop Dose Admin Acetaminophen 500 mg 10/01/24 06:20 10/01/24 11:15 Acetaminophen 500 Mg Tab PO 10/31/24 06:19 500 mg Q6H PRN Administration fever/pain Clindamycin Phosphate 1 appln 09/30/24 21:00 09/30/24 21:34 Clindamycin Phos 2% Vag 7 Appln/40 Gm Tube PV 10/07/24 20:59 1 appln HS MARGARETH Administration Diclofenac Sodium 2 gm 10/01/24 09:00 10/01/24 08:44 Diclofenac Sod 1% Gel 100 Gm Tube EXT 10/31/24 08:59 2 gm TID MARGARETH Administration Protocol Enoxaparin Sodium 40 mg 10/01/24 09:00 10/01/24 08:44 Enoxaparin Inj 40 Mg/0.4 Ml Syr SQ 10/31/24 08:59 40 mg QAM MARGARETH Administration Escitalopram Oxalate 10 mg 10/01/24 09:00 10/01/24 08:44 Escitalopram Oxalate 10 Mg Tab PO 10/31/24 08:59 10 mg DAILY MARGARETH Administration Sodium Chloride 1,000 mls @ 60 mls/hr 09/30/24 20:10 10/01/24 04:31 Nss IV 10/01/24 12:49 60 mls/hr .[id number] Infusion (1) Adverse effects of medication Encounter type: initial encounter Qualified Code(s): T50.905A - Adverse effect of unspecified drugs, medicaments and biological substances, initial encounter
--- NOTE | 2024-10-01 12:21 | Discharge Summary ---
Date of Service October 01, 2024 Admission HPI Per Admitting Provider History obtained from patient and records. Medical history significant for mood disorder, migraine, urolithiasis, anxiety/mood disorder, past tobacco abuse. Patient seen at PCPs office 3 days ago for dysuria symptoms with vaginal discharge and pelvic pain. Outpatient vaginosis panel positive for bacterial vaginosis and Charity species. Patient prescribed 1 dose of Diflucan and Flagyl course for infection. Patient experienced burning sensation of hands and feet after first 2 doses of metronidazole Mild crampy abdominal pain with nausea vomiting. Achy headache symptoms and trouble walking. Denies chest pain, SOB. No recollection of tick bites. Patient relayed concerns to outpatient provider who recommended stopping Flagyl for bacterial vaginosis. Topical clindamycin prescribed in place of Flagyl. Patient consulted ER for worsening discomfort in the hands and feet. 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 Principal Diagnosis Paresthesias Adverse effect of medication Discharge Exam GENERAL: Comfortable, slightly anxious, no respiratory distress SKIN: Normal color, warm HEENT: [place] palpebral conjunctivae, no ptosis, moist buccal mucosa NECK : Supple, no tenderness CHEST : CTA, no tenderness HEART : RRR, no obvious murmurs ABDOMEN: no distention, nontender EXTREMITIES : No LE swelling/tenderness, palpable pulses, no other conspicuous deformities noted NEUROLOGIC : Coherent, no facial asymmetry, gait and stance not assessed Discharge Data Allergies Allergy/AdvReac Type Severity Reaction Status Date / Time naproxen Allergy Mild Vomiting Verified 09/30/24 21:31 metronidazole AdvReac Nausea Verified 09/30/24 21:31 Consultations 09/30/24 19:33 ED Decision to Admit Stat 09/30/24 23:11 Consult Neurology Routine Ordered Studies 09/30/24 18:15 CT angio head wo/w Stat CT angio neck with con Stat Hospital Course (1) Paresthesias: Pt was seen and examined at bedside for the following: Paresthesias with abnormal LFTs Possible metronidazole ADR Bacterial vaginosis currently on topical clindamycin Rx, continue as per OP provider recommendation. mood disorder, stable anxiety/mood disorder, stable past tobacco abuse Pt reports her b/l hand paresthesias has resolved, rt foot paresthesia > Lt foot now but both gradually improving. D/w neurology, MRI brain and c spine recommended to rule out demyelinating conditions, the patient was made aware of this. She had metal accessories/piercings which are difficult to remove and hence would like to wait out to see if symptoms improve on its own. She was made aware to reach back to emergency to get MRI brain and C spine w and wo con if her paresthesias persists beyond 2-3 days. She voiced understanding. LFT about stable, hepatitis panel sent, pt w/ no belly pain, now denies N/V and is able to eat ok. Repeat LFT in 1 week and if not improving possibly get US liver. DVT prophylaxis per Lovenox subcu Full code Plan Pt is being discharged to home w/ following instructions at the point of discharge: Follow-up with your primary care physician within a week time and likely you will need labs CBC/CMP/magnesium/phosphorus. Follow up with neurology in 1 week of discharge. If your paresthesias in the feet don't improve in next 2-3 days, please reach back to emergency for MRI brain and C spine. Establish with outpatient physical therapy. Your liver enzymes were elevated at presentation, you will need repeat liver enzymes levels done in a week time to document resolution. And possibly you might need liver ultrasound if not improving. Coordinate with your PCP office to set up the tests. Your hepatitis panel has been sent while in patient, follow up on final results during your PCP visit within a week time. Take your medications as prescribed. Please make sure that you are able to get your medications today by calling your pharmacy before you leave the hospital so that your treatment continuity is not broken. [facility] Attestation I certify that this patient is under my care and that I, or a physicians surgical physician assistant working with me, had a face to-face encounter that meets the [id number] encounter requirements with this patient. The encounter with the patient was in whole, or in part, for the following medical condition, which is the primary reason for home health care (list medical condition): I certify that, based on my findings, the following services are medically necessary home health services: My clinical findings support the need for the above services because: Further, I certify that my clinical findings support that this patient is homebound (i.e. absences from home require considerable and taxing effort and are for medical reasons or judaism services or infrequently or of short duration when for other reasons) because: Certification for Home Health Services: Based on the above findings, I certify that this patient is confined to the home and needs intermittent alf care, physical therapy and/or speech therapy or continues to need occupational therapy. The patient is under my care, and I have initiated the establishment of the plan of care. This patient will be followed by a physician who will periodically review the plan of care. Total Time Total Time Spent Total Time Spent (In Minutes): 45 Discharge Plan Discharge Items Patient Disposition: Home - Self-Care Reason For Visit: NUMBNESS Discharge Diagnosis: Paresthesias Adverse effect of medication Condition on Discharge: Fair Activity: As commented below Activity Comment: continue with outpatient physical therapy Non-emergency contact: Primary Care Provider Call non-emergency contact if: you have any medication questions Follow-up/Referrals: Bora Mendoza MD [Primary Care Provider] - (Date & Time 10/07/2024 11:00 AM Provider: Rosario Soriano PA-C General Internal Medicine [facility] ) Diet: Regular Ambulatory Orders: Physical Medicine Outside Amb Referral (Routine) Timeframe: 1 Day Location: None Selected Ordered By: Soraida Culp Attending Provider Instructions: Follow-up with your primary care physician within a week time and likely you will need labs CBC/CMP/magnesium/phosphorus. Follow up with neurology in 1 week of discharge. If your paresthesias in the feet don't improve in next 2-3 days, please reach back to emergency for MRI brain and C spine. Establish with outpatient physical therapy. Your liver enzymes were elevated at presentation, you will need repeat liver enzymes levels done in a week time to document resolution. And possibly you might need liver ultrasound if not improving. Coordinate with your PCP office to set up the tests. Your hepatitis panel has been sent while in patient, follow up on final results during your PCP visit within a week time. Take your medications as prescribed. Please make sure that you are able to get your medications today by calling your pharmacy before you leave the hospital so that your treatment continuity is not broken. Pending Studies at Discharge: Yes Stand-Alone Forms: [facility], Smoking Cessation Medications and DC Order Prescriptions: New clindamycin phosphate 2 % Cream 1 applic vaginal HS 7 Days Qty: 40 0RF Continued Mirena 21 mcg/24 hours (8 yrs) 52 mg intrauterine device 1 device intrauterine DIRECTED escitalopram oxalate 10 mg tablet 10 mg PO DAILY olopatadine [Pataday Twice Daily Relief] 0.1 % Drops 1 drp OPHTHALMIC (EYE) BID Rx Instructions: separate doses by at least 6-8 hours diclofenac sodium [Voltaren Arthritis Pain] 1 % Gel 2 g TOPICAL TID Rx Instructions: apply to single elbow, wrist or hand; for hand includes palm/fingers/back of hand Discharge Orders: Discharge Order (Routine); Ordered 10/01/24 Ordered By: Soraida Rivas Admission Data Admit Date/Time: 09/30/24 21:00 Attending Provider: Soraida Rivas Admit Provider: Coy Leslie Primary Care Provider: Bora Mendoza Other Providers: Coy Leslie; Susan Purcell
[2024-10-01 13:12] VITALS: O2SAT 98
[2024-10-01 17:41] LABS: Hep B Surface Ag with confirm Negative (Negative)
[2024-10-01 17:46] LABS: Hep C Ab Rflx HepCQuant RNA Negative (Negative)
[2024-10-02 12:22] LABS: Hepatitis A Antibody IgM NON-REACTIVE (NON-REACTIVE); Hepatitis B Core Antibody IgM NON-REACTIVE (NON-REACTIVE)
== END 2024-10-01 13:26 | disposition home or self-care (01) ==
LOC: 2N 17:24 → ED 17:24 → 2N 22:57